=== PATIENT | female | born 1940 | race Caucasian/White ===

== ENCOUNTER 2016-09-17 19:30 | Emergency (ER) | payer MEDICARE ==
[~2016-09-17] VITALS: Ht 162.6 cm; Wt 91.0 kg
[2016-09-17 19:31] VITALS: BP 148/75; PULSE 111; RESP 18; TEMP 97.4; O2SAT 100
[2016-09-17] MEDS ORDERED: KETOROLAC TROMETHAMINE 60 MG/2 ML (IM) VIAL IM ONE (22:15)
[2016-09-17] MEDS ORDERED: CYCLOBENZAPRINE HCL 10 MG TAB PO ONE (22:15)
--- NOTE | 2016-09-17 22:37 | RADRPT ---
EXAM DATE/TIME: 09/17/2016 22:17 [facility] COMPARISON: No previous studies available for comparison. INDICATIONS : Lower back and pelvic pain for the past week. MEDICAL HISTORY : Carcinoma, breast. SURGICAL HISTORY : Hysterectomy. ENCOUNTER: Initial ACUITY: 1 week PAIN SCORE: 10/10 LOCATION: Bilateral pelvis. FINDINGS: Mild degenerative changes are noted involving the lower lumbar spine. There is no acute fracture or dislocation of the pelvis. CONCLUSION: 1. No acute fracture or dislocation. 2. Mild degenerative changes involving the lower lumbar spine. Vern Munoz MD on September 17, 2016 at 22:34 Board Certified Radiologist. This report was verified electronically.
[2016-09-17 22:42] VITALS: BP 141/74; PULSE 94; RESP 16; TEMP 98.6; O2SAT 97
--- NOTE | 2016-09-17 22:42 | RADRPT ---
EXAM DATE/TIME: 09/17/2016 22:18 [facility] COMPARISON: No previous studies available for comparison. INDICATIONS : Lower back and pelvic pain for the past week. MEDICAL HISTORY : Carcinoma, breast. SURGICAL HISTORY : Hysterectomy. ENCOUNTER: Initial ACUITY: 1 week PAIN SCORE: 10/10 LOCATION: Bilateral lower back. FINDINGS: There is grade I anterolisthesis of L4 in relation to L5, L5 in relation to S1 and L3 in relation to L2. There is degenerative disc disease at all levels within the lumbar spine. There is no acute com pression fracture. No pars defects are noted. CONCLUSION: 1. Degenerative disc disease at all levels within the lumbar spine. 2. Grade I anterolisthesis of L4 in relation to L5, L5 in relation to S1 and L3 in relation to L2. 3. No evidence of acute compression fracture or pars defects. Vern Munoz MD on September 17, 2016 at 22:34 Board Certified Radiologist. This report was verified electronically.
[2016-09-17] MEDS ORDERED: GABA300C5 PO (22:59)
[2016-09-17] MEDS ORDERED: OMEP20TA PO (22:59)
[2016-09-17] MEDS ORDERED: AMLO5TAB2 PO (22:59)
[2016-09-17] MEDS ORDERED: RED1CAP4 PO (22:59)
[2016-09-17] MEDS ORDERED: LEVO88TA2 PO (22:59)
[2016-09-17] MEDS ORDERED: COUM2.5T PO (22:59)
[2016-09-17] MEDS ORDERED: TRIA1TAB5 PO (22:59)
[2016-09-17] MEDS ORDERED: NORT25CA PO (22:59)
[2016-09-17] MEDS ORDERED: COQ-100C2 PO (22:59)
[2016-09-17] MEDS ORDERED: DIAZ5TAB PO (22:59)
[2016-09-17] MEDS ORDERED: UMEC1INH INH (23:01)
[2016-09-17] MEDS ORDERED: SIMV40TA PO (23:01)
[2016-09-17] MEDS ORDERED: MULT-135 PO (23:01)
[2016-09-18 00:47] LABS: BLOOD, URINE NEG (NEG); COMMENT (UR) CULT NOT INDICATED; CULTURE IF INDICATED CULT NOT INDICATED; GLUCOSE,URINE NEG (NEG); HYALINE CAST, URINE 2 /lpf (RARE); KETONE, URINE NEG (NEG); MUCUS URINE FEW /lpf (OCC); NITRITE,URINE NEG (NEG); SQUAMOUS EPITHELIAL CELL URINE <1 /hpf (0-5); URINE COLOR YELLOW (YELLW/STRAW)
[2016-09-18] MEDS ORDERED: CYCL5TAB PO (00:57)
--- NOTE | 2016-09-18 00:57 | PD ---
HPI Chief Complaint: Hip Injury Time Seen by Provider: 21:55 Travel History International Travel<30 days: No Contact w/Intl Traveler<30days: No Traveled to known affect area: No History of Present Illness HPI Patient is a 76-year-old female with history of breast cancer, who comes in complaining of back and hip pain. She says that she was bending over bleeding in the garden and she thinks she twisted funny, and then the pain started. Her doctor told her to come in and get checked due to her history of cancer. She recently finished chemotherapy and was told she was cancer free. She denies numbness or tingling in her legs. She denies saddle anesthesia. She denies any urinary symptoms. PFSH Past Medical History Arthritis: Yes Asthma: No Cancer: Yes Cardiovascular Problems: No COPD: Yes Diabetes: No GERD: Yes Genitourinary: No Hypertension: Yes Insomnia: Yes Musculoskeletal: No Neurologic: No Respiratory: No ?: Not Past Surgical History Mastectomy: Yes Family History Family Breast Cancer: Yes Social History Alcohol Use: No Tobacco Use: No Substance Use: No Allergies-Medications (Allergen,Severity, Reaction): Coded Allergies: No Known Allergies (Verified , 09/17/16) Reported Meds & Prescriptions Reported Meds & Active Scripts Active Flexeril (Cyclobenzaprine HCl) 5 Mg Tab 5 Mg PO TID Reported Simvastatin 40 Mg Tab 40 Mg PO HS Incruse Ellipta Inh (Umeclidinium [place] Inh) 0.0625 Mg/Act Inh 1 Puff INH DAILY Multi Vitamin (Multiple Vitamin) 1 Tab Tab 1 Tab PO DAILY Red Yeast Rice (Red Yeast Rice Extract) Unknown Strength Cap Unknown Dose PO DAILY Coq-10 (Coenzyme Q10 (Ubidecarenone)) 100 Mg Cap 100 Mg PO DAILY Diazepam 5 Mg Tab 5 Mg PO DAILY Coumadin (Warfarin) 2.5 Mg Tab 2.5 Mg PO HS Amlodipine (Amlodipine Besylate) 5 Mg Tab 5 Mg PO DAILY Nortriptyline (Nortriptyline HCl) 25 Mg Cap 25 Mg PO DAILY Triamterene-Hydrochlorothiazide 75-50 Mg Tab 1 Tab PO DAILY Omeprazole 20 Mg Tab 20 Mg PO DAILY Gabapentin 300 Mg Cap 300 Mg PO BID Levothyroxine (Levothyroxine Sodium) 88 Mcg Tab 88 Mcg PO DAILY Review of Systems Except as stated in HPI: all other systems reviewed are Neg General / Constitutional: No: Fever, Chills HENT: No: Headaches, Lightheadedness Cardiovascular: No: Chest Pain or Discomfort Respiratory: No: Shortness of Breath Gastrointestinal: No: Nausea, Vomiting Musculoskeletal: Positive: Pain Skin: No Change in Pigmentation Neurologic: No: Incontinence, Sensory Disturbance Physical Exam Narrative GENERAL: Awake and alert, in no acute distress. SKIN: Focused skin assessment warm/dry. HEAD: Atraumatic. Normocephalic. EYES: Pupils equal and round. No scleral icterus. ENT: Mucous membranes pink and moist. NECK: Trachea midline. No JVD. CARDIOVASCULAR: Regular rate and rhythm. No murmur appreciated. RESPIRATORY: No accessory muscle use. Clear to auscultation. Breath sounds equal bilaterally. GASTROINTESTINAL: Abdomen soft, non-tender, nondistended. MUSCULOSKELETAL: No obvious deformities. No clubbing. No cyanosis. No edema. No midline tenderness, tender to palpation of bilateral sacroiliac areas. NEUROLOGICAL: Awake and alert. No obvious cranial nerve deficits. Motor grossly within normal limits. Normal speech. No saddle anesthesia. PSYCHIATRIC: Appropriate mood and affect; insight and judgment normal. Data Data Last Documented VS Vital Signs Date Time Temp Pulse Resp B/P Pulse Ox O2 Delivery O2 Flow Rate FiO2 09/17/16 22:42 98.6 94 16 141/74 97 Room Air Orders Urinalysis - C+S If Indicated (09/17/16 22:03) Pelvis, Ap Only (Routine) (09/17/16 ) Spine, Lumbar Comp W/Obliq (09/17/16 ) Ketorolac Inj (Toradol Inj) (09/17/16 22:15) Cyclobenzaprine (Flexeril) (09/17/16 22:15) Tramadol (Ultram) (09/18/16 01:00) Labs Laboratory Tests Test 09/18/16 00:20 Urine Color YELLOW Urine Turbidity CLEAR Urine pH 7.0 Urine Specific [place] 1.015 Urine Protein NEG mg/dL Urine Glucose (UA) NEG mg/dL Urine Ketones NEG mg/dL Urine Occult Blood NEG Urine Nitrite NEG Urine Bilirubin NEG Urine Urobilinogen LESS THAN 2.0 MG/DL Urine Leukocyte Esterase TRACE Urine RBC 1 /hpf Urine WBC 3 /hpf Urine Squamous Epithelial <1 /hpf Cells Urine Hyaline Casts 2 /lpf Urine Mucus FEW /lpf Microscopic Urinalysis Comment CULT NOT INDICATED MDM Medical Decision Making Medical Screen Exam Complete: Yes Emergency Medical Condition: Yes Differential Diagnosis Sciatica versus muscle strain versus metastatic disease versus Narrative Course Patient is a 76-year-old female comes in complaining of hip pain. Exam shows bilateral sacroiliac tenderness. There are no neurologic abnormalities. X-ray of the lumbar spine and pelvis performed. Lumbar spine shows extensive degenerative changes. Urinalysis is negative for infection. Patient given Toradol and Flexeril with improvement of her pain. As she is getting up to leave, she did have some more increased pain, given a tramadol. Given prescriptions for Flexeril. Advised to take Tylenol or ibuprofen as home as needed for pain. Advised follow-up with her doctors. Advised to return to the ED as needed for any worsening symptoms. Diagnosis Primary Impression: Back pain Qualified Code: M54.42 - Acute bilateral low back pain with bilateral sciatica Patient Instructions: General Instructions, Sciatica (ED) Additional Instructions: Follow up with your doctor. You can take Tylenol or Ibuprofen for pain as well as the muscle relaxer. Scripts Cyclobenzaprine (Flexeril)5 Mg Tab5 Mg PO TID #15 TAB Ref 0 Prov:Daniella Plaza MD 09/18/16 Disposition: DISCHARGE HOME Condition: Stable Daniella Plaza MD Sep 18, 2016 00:57
[2016-09-18] MEDS ORDERED: traMADol HCL 50 MG TAB PO ONE (01:00)
== END 2016-09-18 02:11 | disposition home or self-care (01) ==
LOC: NEPC 19:30
DX: M54.5 Low back pain (principal); M54.41 Lumbago with sciatica, right side; M54.42 Lumbago with sciatica, left side; J44.9 Chronic obstructive pulmonary disease, unspecified; I10 Essential (primary) hypertension
CPT/HCPCS: 72110; 72170; 81001; 96372; 99283; J1885